=== PATIENT | female | born 1955 | race Asian ===

== ENCOUNTER → 2016-10-17 | Outpatient (CLI) | payer BC | END | disposition home or self-care (01) | LOC: RAD 15:16 | PROVIDERS: ATTEND Specialist | DX: J20.9 Acute bronchitis, unspecified (principal) | CPT/HCPCS: 71020 ==

== ENCOUNTER → 2016-12-30 | Outpatient (CLI) | payer BC ==
[~2016-12-30] MED LIST: ASPI81TA50 PO; ATOR10TA9 PO; METF500T4 PO; MULT-709 PO
[2016-12-30 15:13] LABS: HEMATOCRIT 44.4 % (34.6-47.8); HEMOGLOBIN 14.6 g/dL (11.7-16.4); WHITE BLOOD COUNT 7.3 x10^3/uL (3.4-10)
[2016-12-30 15:19] LABS: BLOOD UREA NITROGEN 10 mg/dL (7-18)
[2016-12-30 15:22] LABS: ASPARTATE AMINO TRANSFERASE 23 U/L (15-37)
== END | disposition home or self-care (01) ==
LOC: STAR 14:23
PROVIDERS: ATTEND Obstetrics & Gynecology Female Pelvic Medicine and Reconstructive Surgery
DX: Z01.818 Encounter for other preprocedural examination (principal); R94.31 Abnormal electrocardiogram [ECG] [EKG]; N39.3 Stress incontinence (female) (male); N81.2 Incomplete uterovaginal prolapse
CPT/HCPCS: 36415; 80053; 85025; 93005

== ENCOUNTER 2017-01-09 07:36 | Day surgery (SDC) | payer BC ==
[~2017-01-09] VITALS: Ht 157.5 cm; Wt 75.4 kg
[~2017-01-09 07:36] MED LIST changes: +BUPIVACAINE/PF 0.25% ONE; +EPINEPHRINE 1 MG/ML, 1ML ONE; +NEOMY/POLYMYXIN B GU IRR. 1 ML IRRIG ONE
[2017-01-09] MEDS ORDERED: MIDAZOLAM 1 MG/ML, 2ML ONE (07:59)
[2017-01-09] MEDS ORDERED: FENTANYL PF 100 MCG/2ML ONE ×3 (08:00→11:51)
[2017-01-09 08:20] VITALS: BP 145/91
[2017-01-09] MEDS ORDERED: LACTATED RINGERS 1,000 ML IV SCH ×2 (09:00→11:51)
[2017-01-09] MEDS ORDERED: OXYcodone 5 MG/5 ML ORAL.SOL UDC PO PRN (10:00)
[2017-01-09] MEDS ORDERED: HYDROmorphone 1 MG/ML, 1ML IV PRN (10:00)
[2017-01-09] MEDS ORDERED: METOCLOPRAMIDE 5 MG/ML, 2ML IV PRN (10:00)
[2017-01-09] MEDS ORDERED: ONDANSETRON 2MG/ML, 2ML IVPush PRN (10:00)
[2017-01-09] MEDS ORDERED: LABETALOL 5MG/ML, 20ML IV PRN (10:00)
[2017-01-09] MEDS ORDERED: ACETAMINOPHEN 325 MG TABLET PO PRN (10:00)
[2017-01-09] MEDS ORDERED: PROMETHAZINE 25 MG/ML, 1ML IV PRN (10:00)
[2017-01-09] MEDS ORDERED: hydrALAzine 20 MG/ML, 1ML IV PRN (10:00)
[2017-01-09] MEDS ORDERED: MEPERIDINE/PF 25MG/0.5ML IVPush PRN (10:00)
[2017-01-09] MEDS ORDERED: PROPOFOL 10 MG/ML, 20ML ONE (10:05)
[2017-01-09] MEDS ORDERED: ONDANSETRON 2MG/ML, 2ML ONE (10:05)
[2017-01-09] MEDS ORDERED: DEXAMETHASONE 4 MG/ML, 5ML ONE (10:05)
[2017-01-09] MEDS ORDERED: KETOROLAC 30 MG/1 ML ONE (10:05)
[2017-01-09] MEDS ORDERED: GLYCOPYRROLATE 0.2MG/1ML ONE (10:05)
[2017-01-09] MEDS ORDERED: ROCURONIUM 10 MG/ML ONE (10:05)
[2017-01-09] MEDS ORDERED: NEOSTIGMINE 1 MG/ML, 10ML ONE (10:05)
[2017-01-09] MEDS ORDERED: ACETAMINOPHEN 325 MG TABLET ONE (11:52)
[2017-01-09] MEDS ORDERED: OXYcodone 5 MG/5 ML ORAL.SOL UDC ONE (11:52)
[2017-01-09] MEDS: FENTANYL PF 100 MCG/2ML IV PRN ×2 (12:13→12:21)
[2017-01-09] MEDS ORDERED: HYDROmorphone 1 MG/ML, 1ML ONE (12:33)
== END 2017-01-09 16:15 | disposition home or self-care (01) ==
LOC: OUT 07:36
PROVIDERS: ATTEND Obstetrics & Gynecology Female Pelvic Medicine and Reconstructive Surgery
DX: N95.0 Postmenopausal bleeding (principal); N85.00 Endometrial hyperplasia, unspecified; N39.3 Stress incontinence (female) (male); N84.0 Polyp of corpus uteri; E78.5 Hyperlipidemia, unspecified; E11.9 Type 2 diabetes mellitus without complications
CPT/HCPCS: 51992; 58552; 82962; 88307; J0171; J1100; J1170; J1885; J2250; J2405; J2704; J2710; J3010; J3490; J7120; C1771